=== PATIENT | female | born 1990 | race Caucasian/White ===

== ENCOUNTER 2019-11-29 21:36 | Inpatient (IN) ==
[2019-11-29 22:11] LABS: ABS Lymphocytes 2.6 10^3/ul (1.0-4.8); Eosinophil % 0.1 %; Hematocrit 43 % (35-47); Hemoglobin 14.8 g/dL (12.0-16.0); Lymphocyte % 14.5 %; Mean Corpuscular HGB Conc 34 g/dL (31-36); Mean Corpuscular Hemoglobin 34 pg (27-31); Mean Corpuscular Volume 98 fL (80-97); Mean Platelet Volume 7.3 fL (7.4-10.4); Nucleated Red Blood Cells % 0.1; Platelet Count 335 10^3/uL (150-450); Red Blood Count 4.38 10^6 /uL (3.70-4.87); Red Cell Distribution Width 13 % (10-15); White Blood Count 18.2 10^3/uL (3.5-10.8)
[2019-11-29 22:16] LABS: Urine Appearance Cloudy; Urine Bilirubin Negative (Negative); Urine Blood 2+ (Negative); Urine Color Amber; Urine Glucose 1+(50 mg/dL) (Negative); Urine Ketones Negative (Negative); Urine Nitrite Negative (Negative); Urine Protein 2+(100 mg/dL) (Negative); Urine Specific Gravity 1.017 (1.010-1.030); Urine Urobilinogen Negative (Negative)
[2019-11-29 22:18] LABS: Urine Benzodiazepine Screen None Detected (None Detect); Urine Opiates Screen Presumptive Positive (None Detect)
[2019-11-29 22:26] LABS: ALT 13 U/L (7-52); AST 20 U/L (13-39); Albumin 4.4 g/dL (3.2-5.2); Albumin/Globulin Ratio 1.4 (1-3); Alkaline Phosphatase 60 U/L (34-104); Anion Gap 7 mmol/L (2-11); BUN/Creatinine Ratio 11.6 (8-20); Blood Urea Nitrogen 11 mg/dL (6-24); CO2 Carbon Dioxide 25 mmol/L (22-32); Calcium 9.7 mg/dL (8.6-10.3); Chloride 107 mmol/L (101-111); EGFR African American 83.6 (>60); EGFR Non-African American 69.1 (>60); Globulin 3.1 g/dL (2-4); Glucose 78 mg/dL (70-100); Potassium 3.6 mmol/L (3.5-5.0); Sodium 139 mmol/L (135-145); Total Protein 7.5 g/dL (6.4-8.9)
[2019-11-29 22:31] LABS: Acetaminophen < 15 mcg/mL; Alcohol, S < 10 mg/dL (<10); Salicylate < 2.50 mg/dL (<30)
[2019-11-29 22:31] LABS: Urine Bacteria Absent (Absent); Urine Red Blood Cell 2+(6-10/hpf) (Absent); Urine Squamous Epithelial Cell Present (Absent); Urine White Blood Cell 1+(6-10/hpf) (Absent)
[2019-11-29 22:33] LABS: HCG Pregnancy < 0.60 mIU/mL
[2019-11-29 22:47] LABS: TSH (Thyroid Stimulating Horm) 2.15 mcIU/mL (0.34-5.60)
[2019-11-30] MEDS ORDERED: Al Hydrox/Mg Hydrox/Simet LIQ 30 ML UDC PO PRN (01:43)
[2019-11-30] MEDS ORDERED: Nicotine GUM 2MG FRUIT FLAVOR PO PRN (02:00)
[2019-11-30] MEDS ORDERED: chlorproMAZINE 25 MG/ML 2 ML (50 MG) IM ONE (02:15)
[2019-11-30] MEDS: Vitamin THERAPEUTIC TAB PO SCH (09:59)
[2019-11-30] MEDS: Nicotine PATCH 21 MG/24 HR PATCH TRANSDERM SCH (09:59)
[2019-12-01] MEDS: Nicotine PATCH 21 MG/24 HR PATCH TRANSDERM SCH (11:39)
[2019-12-01] MEDS: Vitamin THERAPEUTIC TAB PO SCH (11:39)
[2019-12-02 08:28] LABS: HDL Cholesterol 51.7 mg/dL
[2019-12-02] MEDS: Nicotine PATCH 21 MG/24 HR PATCH TRANSDERM SCH (09:43)
[2019-12-02] MEDS: Vitamin THERAPEUTIC TAB PO SCH (09:43)
[2019-12-03] MEDS: Nicotine PATCH 21 MG/24 HR PATCH TRANSDERM SCH (09:38)
[2019-12-03] MEDS: Vitamin THERAPEUTIC TAB PO SCH (09:38)
[2019-12-03 09:53] VITALS: BP 95/60
== END 2019-12-03 11:00 | DRG 773 ==
LOC: ED 21:36 → BSU 11-30 02:52
PROVIDERS: ADMIT Psychiatry & Neurology Psychiatry; ATTEND Psychiatry & Neurology Psychiatry